=== PATIENT | female | born 1980 | race Caucasian/White ===

== ENCOUNTER 2017-07-05 17:56 | Emergency (ER) | payer OTHER ==
[~2017-07-05] VITALS: Ht 160 cm; Wt 81.6 kg
--- NOTE | ~2017-07-05 | CT4 ---
[facility] A Service of [facility] RADIOLOGY TEXT RESULTS PATIENT: PAUL SIMMONS LOCATION: [facility] : 78 UNIT #: [id number] AGE: [address]: Arthur Miranda MD SEX: F ORDER DR: [id number] [place], [place] [address] [id number] MR#: [id number] #: [id number] NAME: PAUL SIMMONS. : 1980 SEX: F STUDY DATE/TIME: 07/05/2017 21:29 UNIT: TRAY ROOM: STUDY DESCRIPTION: CT Abd and Pelv Wo Cont Attending Physician: Arthur Miranda M.D. Ordering Physician: Arthur Miranda M.D. [facility] This report is preliminary unless electronic signature is present EXAM CT of abdomen and pelvis without contrast. HISTORY Right-sided abdominal pain, pelvic pain starting today. COMPARISON 06/29/2014 TECHNIQUE Axial 3 mm images were obtained through the abdomen and pelvis without IV or oral contrast. Sagittal and coronal reconstructions were generated. This CT exam was performed with one or more of the following radiation dose reduction techniques: automatic exposure control, adjustment of mA and/or kV according to patient size, and iterative reconstruction. FINDINGS The lung bases are clear. Gallbladder has been removed. The liver, spleen, pancreas, adrenal glands and kidneys are normal. The aorta is normal in size. There is no adenopathy. The bowel including the appendix appears normal. The uterus, adnexal regions and bladder are normal. The bones are unremarkable. IMPRESSION 1. Normal appearance. 2. Prior cholecystectomy. 3. Otherwise, normal. Dictated by... Clem Andrade M.D. [facility] A Service [facility] RADIOLOGY TEXT RESULTS PATIENT: PAUL SIMMONS LOCATION: [facility] : 78 UNIT #: [id number] AGE: [address]: Arthur Miranda MD SEX: F ORDER DR: THIS IS AN ELECTRONICALLY VERIFIED REPORT Clem Andrade M.D. at 07/06/2017 7:58 PM FINN/nuno TD: 07/06/2017 19:18 JOB #: [id number] MEDICAL IMAGING REPORT Page 1 of 1 COPY
[~2017-07-05 17:56] MED LIST: ALBUTEROL17 GM INH; AZITHROMYCIN250 MG PO; BACTRIM DS TABL1 TA1 PO; CEPHALEXIN500 M1 PO; CIPRO PO; CLEOCIN HCL300 M1 PO; DARVOCET-N 1001 TAB PO; DOXYCYCLINE150 MG PO; E-MYCIN250 MG PO; ERY-TAB500 MG PO; ERYC250 MG PO; FLAGYL PO; FLEXERIL PO; FLEXERIL10 M1 PO; FLEXERIL10 MG PO; IBUPROFEN800 MG PO; KETOPROFEN PO; LODINE PO; LORTAB 10-5001 EACH PO; LORTAB 5/500 TA1 TA1 PO; LORTAB 5/500 TA1 TA2 PO; MEDI-MECLIZINE25 M1 PO; MEDROL PO; MOTRIN400 MG PO; MOTRIN600 MG PO; NAPROSYN500 MG PO; NAPROXEN PO; NEURONTIN PO; NO MEDICATIONS; NORCO 5/325 TAB1 TAB PO; OMEPRAZOLE20 M1 PO; ORUDIS75 M1 DOB; OXAPROZIN600 MG PO; PHENERGAN PO; PHENERGAN PR; PHENERGAN25 M1 PO; PHENERGAN25 MG PO; PREDNISONE PO; PREDNISONE10 MG/DOSE PO; PYRIDIUM PO; TESSALON200 MG PO; TOBREX3.5 GM OP; TYLOX 5/500 CAP1 CAP PO; ULTRAM PO; VICODIN 5/1 TAB 5/50 PO; VICODIN 5/500 T1 TAB PO; VICODIN PO; ZITHROMAX PO
[2017-07-05 19:50] LABS: BASOPHIL# 0.1 X10e3 (0-0.3); BASOPHIL% 1.2 % (0-2.5); EOSINOPHIL# 0.5 X10e3 (0-0.7); HEMATOCRIT 37.2 % (35.0-45.0); HEMOGLOBIN 12.1 gm/dL (12.0-16.0); LYMPHOCYTE# 2.5 X10e3 (1.0-3.5); LYMPHOCYTE% 28.1 % (17.0-45.0); MEAN CELL VOLUME 81.8 FL (83-96); MEAN CORPUSCULAR HEMOGLOBIN 26.5 PG (28-34); MEAN CORPUSCULAR HGB CONC 32.4 g/dL (30-36); MONOCYTE# 0.6 X10e3 (0-1.0); MONOCYTE% 6.9 % (3.0-12.0); NEUTROPHIL# 5.3 X10e3 (1.5-7.1); NEUTROPHIL% 58.8 % (40-75); PLATELET COUNT 234 X10e3 (140-420); RED BLOOD COUNT 4.55 X10e (3.90-5.30); RED CELL DISTRIBUTION WIDTH 16.9 % (11.0-15.5); WHITE BLOOD COUNT 9.1 X10e3 (4.0-10.5)
[2017-07-05 19:51] LABS: DIFF IND NO
[2017-07-05 20:06] LABS: ALBUMIN SERUM 3.9 g/dL (3.5-5.0); ALKALINE PHOSPHATASE 47 U/L (32-92); ALT (SGPT) 15 U/L (10-40); AMYLASE 15 U/L (0-46); AST (SGOT) 17 U/L (10-42); BILIRUBIN,TOTAL 0.4 mg/dL (0.2-2.0); BLOOD UREA NITROGEN 13 mg/dL (9-23); BUN/CREATININE RATIO 18.57; CARBON DIOXIDE 29 mmol/L (22-31); CHLORIDE 103 mmol/L (100-111); CREATININE SERUM 0.7 mg/dL (0.6-1.4); GLOM FILT RATE Estimated 109.9 mL/min (>60); GLUCOSE FASTING 87 mg/dL (70-110); LIPASE 25 U/L (22-51); POTASSIUM 3.5 mmol/L (3.5-5.1); SODIUM 138 mmol/L (135-145)
[2017-07-05 20:08] LABS: BILIRUBIN, DIRECT <0.1 mg/dL (0.0-0.2); BILIRUBIN,INDIRECT 0.3 mg/dL (0.0-0.9)
[2017-07-05 20:17] LABS: URINE SOURCE CLEAN CATCH
[2017-07-05 20:26] LABS: URINE APPEARANCE CLEAR; URINE BILIRUBIN NEG (NEG); URINE BLOOD NEG (NEG); URINE COLOR YELLOW; URINE GLUCOSE NEG (NEG); URINE KETONE NEG (NEG); URINE LEUKOCYTE ESTERASE 2+ (NEG); URINE NITRATE NEG (NEG); URINE PROTEIN NEG (NEG); URINE SPECIFIC GRAVITY 1.027 (1.003-1.035)
[2017-07-05 20:28] LABS: CULTURE INDICATED? YES; URINE BACTERIA AUWI 3+ (NEGATIVE); URINE SQUAMOUS EPITHELIAL CELL FEW /[HPF]; UWBCS1 AUWI 25-50 (0-5)
== END 2017-07-05 22:08 | disposition home or self-care (01) ==
LOC: CED 17:56
DX: N39.0 Urinary tract infection, site not specified (principal); Z90.49 Acquired absence of other specified parts of digestive tract; Z88.0 Allergy status to penicillin
CPT/HCPCS: 36415; 74176; 80048; 80076; 81003; 82150; 83690; 84703; 85025; 87086; 87088; 87186; 99284